=== PATIENT | female | born 1990 | race Caucasian/White ===

== ENCOUNTER 2023-03-03 00:18 | Emergency (ER) | payer SELFPAY ==
[~2023-03-03] VITALS: Ht 162.6 cm; Wt 75.0 kg
[2023-03-03] MEDS ORDERED: SODIUM CHLORIDE 0.9% 1000ML BAG (SEPSIS BOLUS) IV ONE (00:30)
[2023-03-03] MEDS ORDERED: ACETAMINOPHEN 325MG TABLET PO ONE (00:45)
[2023-03-03 01:05] LABS: BASOPHILS % 0.2 % (0.0-2.0); EOSINOPHILS % 0.4 % (0.0-5.0); HEMATOCRIT. 32.2 % (36.0-48.0); LYMPHOCYTES % 9.7 % (20.0-50.0); MEAN CORPUSCULAR HEMOGLOBIN 33.8 pg (28.0-32.0); MEAN PLATELET VOLUME 7.5 fl (7.4-10.4); MONOCYTES % 0.8 % (2.0-8.0); NEUTROPHILS % 88.9 % (40.0-76.0); PLATELET 272 x1000/uL (130-400); RED BLOOD CELL COUNT 3.25 mill/uL (4.2-5.4); RED CELL DISTRIBUTION WIDTH 12.5 % (11.6-14.6)
[2023-03-03 01:14] LABS: CHLORIDE 112 mEq/L (98-107)
[2023-03-03 01:22] LABS: CREATINE KINASE 139 IU/L (26-192); ETHANOL BLOOD < 10 mg/dL (-10)
[2023-03-03 01:26] LABS: HCG SCREEN POSITIVE
[2023-03-03 01:33] LABS: PROTHROMBIN TIME 10.6 sec (9.6-11.0)
[2023-03-03 02:42] LABS: CLARITY URINE CLEAR (CLEAR); COLOR URINE YELLOW (YELLOW); KETONES URINE NEGATIVE (NEGATIVE); LEUKOCYTE ESTERASE URINE 2+ (NEGATIVE); NITRITE URINE NEGATIVE (NEGATIVE); OCCULT BLOOD URINE 2+ (NEGATIVE); PH URINE 5.5 (4.5-8.0); PROTEIN URINE 1+ (NEGATIVE); SPECIFIC GRAVITY URINE 1.011 (1.005-1.030); UROBILINOGEN URINE 0.2 E.U./dL (0.2-1.0)
[2023-03-03 02:59] LABS: *AMPHETAMINES SCREEN URINE NEGATIVE (NEGATIVE); *BARBITURATES SCREEN URINE NEGATIVE (NEGATIVE); *BENZODIAZEPINES SCREEN URINE NEGATIVE (NEGATIVE); *COCAINE SCREEN URINE NEGATIVE (NEGATIVE); CANNABINOID URINE SCREEN NEGATIVE (NEGATIVE); METHADONE URINE SCREEN NEGATIVE (NEGATIVE); OPIATES URINE SCREEN NEGATIVE (NEGATIVE); PHENCYCLIDINE URINE SCREEN NEGATIVE (NEGATIVE)
[2023-03-03] MEDS ORDERED: ACET-2708 MT ×2 (04:43→05:17)
[2023-03-03] MEDS ORDERED: CEPHALEXIN 250MG CAPSULE PO NR (05:15)
[2023-03-03] MEDS ORDERED: CEPH500C2 MT (05:17)
[2023-03-03 05:40] VITALS: BP 117/81
[2023-03-03] MEDS ORDERED: IOHEXOL-300 100 ML BOTTLE ONE (05:40)
== END 2023-03-03 05:47 | disposition home or self-care (01) ==
LOC: ER 00:18
DX: R10.30 Lower abdominal pain, unspecified (principal)
CPT/HCPCS: 36415; 74177; 80053; 80305; 80320; 81003; 82550; 83605; 84145; 84703; 85025; 85610; 87040; 87077; 87086; 87186; 93005; 96360; 99285; J7030; Q9967; Z7610; G0480